=== PATIENT | male | born 1995 | race Asian ===

== ENCOUNTER 2021-08-02 19:21 | Emergency (ER) | payer SELFPAY ==
[~2021-08-02] VITALS: Ht 172.7 cm; Wt 78.0 kg
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
[2021-08-02 19:28] VITALS: BP 129/77
--- NOTE | 2021-08-02 19:36 | NUR ---
PT SEEN BY ISAK GAXIOLA
--- NOTE | 2021-08-02 19:38 | NUR ---
[employer] AT BEDSIDE
[2021-08-02] MEDS ORDERED: ONDANSETRON 4 MG TAB.RAPDIS ONE (19:42)
--- NOTE | 2021-08-02 19:51 | NUR ---
PT TAKEN TO CT
[2021-08-02] MEDS ORDERED: ONDANSETRON 4 MG TAB.RAPDIS SL ONE (20:00)
--- NOTE | 2021-08-02 20:02 | NUR ---
PT RETURNED TO ER BED [address]
[2021-08-02] MEDS ORDERED: IBUP-1955 PO (20:58)
--- NOTE | 2021-08-02 21:00 | NUR ---
[place] cam[facility] in [facility] - 08/02/21 at 2101 by MIKIE MEDICAL ASSISTANT PER DIEM AT PT'S BEDSIDE
--- NOTE | 2021-08-02 21:30 | NUR ---
Patient discharged to home in stable condition. Written and verbal after care instructions given. Patient verbalizes understanding of instruction. PT ambulatory with a steady gait
== END 2021-08-02 21:33 | disposition home or self-care (01) ==
LOC: ER 19:28
DX: S09.90XA Unspecified injury of head, initial encounter (principal); Z60.2 Problems related to living alone; Z91.048 Other nonmedicinal substance allergy status; V49.49XA Driver injured in collision with other motor vehicles in traffic accident, initial encounter; Y93.89 Activity, other specified; Y92.413 State road as the place of occurrence of the external cause; Y99.8 Other external cause status
CPT/HCPCS: 70450; 72125; 99284; Q0162